=== PATIENT | male | born 1980 | race African-American/Black ===

== ENCOUNTER 2016-12-23 16:09 | Emergency (ER) | payer OTHER ==
[~2016-12-23] VITALS: Ht 195.6 cm; Wt 132.0 kg
[2016-12-23 17:57] VITALS: BP 149/118
[2016-12-23] MEDS ORDERED: cefTRIAXone SOD 1,000 MG VL IM ONE (18:00)
== END 2016-12-23 18:38 | disposition home or self-care (01) ==
LOC: ER 16:20
DX: L03.211 Cellulitis of face (principal); K02.9 Dental caries, unspecified; Z88.8 Allergy status to other drugs, medicaments and biological substances
CPT/HCPCS: 96372; 99283; J0696